=== PATIENT | female | born 1980 | race Caucasian/White ===

== ENCOUNTER → 2017-06-24 | Outpatient (CLI) | payer OTHER ==
[~2017-06-24] MED LIST: VENL150ER PO
[2017-06-27 13:19] LABS: HPV Genotype 16 Not Detected (NOTDET); HPV Genotype 18 Not Detected (NOTDET)
[2017-07-05 10:04] LABS: HPV High Risk Other Not Detected (NOTDET)
== END ==
LOC: LAB SRC 10:59
PROVIDERS: Nurse Practitioner Family
DX: Z01.419 Encounter for gynecological examination (general) (routine) without abnormal findings (principal)
CPT/HCPCS: 87624; G0123

== ENCOUNTER 2021-01-24 19:10 | Day surgery (SDC) | payer OTHER ==
[~2021-01-24] VITALS: Ht 165.1 cm; Wt 72.6 kg
[2021-01-24 19:49] LABS: BASOPHILS ABSOLUTE AUTO 0.09 K/mm3 (0.00-0.23); BASOPHILS PERCENT AUTO 1 % (0-2); EOSINOPHILS ABSOLUTE AUTO 0.28 K/mm3 (0.00-0.68); EOSINOPHILS PERCENT AUTO 3 % (0-6); Hematocrit 43.8 % (33.0-51.0); IMMATURE GRAN ABSOLUTE AUTO 0.07 K/mm3 (0.00-0.10); IMMATURE GRAN PERCENT AUTO 1 % (0-1); LYMPHOCYTES ABSOLUTE AUTO 2.22 K/mm3 (0.84-5.20); LYMPHOCYTES PERCENT AUTO 21 % (21-46); MONOCYTES PERCENT AUTO 5 % (4-13); Mean Corpuscular HGB 31.7 pg (26.0-34.0); Mean Corpuscular HGB Conc 34.2 g/dL (31.5-36.5); Mean Corpuscular Volume 93 fL (80-100); Mean Platelet Volume 9.1 fL (9.1-12.4); NEUTROPHILS ABSOLUTE AUTO 7.62 K/mm3 (1.96-9.15); NEUTROPHILS PERCENT AUTO 71 % (41-73); Platelet Count 293 K/mm3 (150-400); RDW Coefficient Variation 11.9 % (11.7-14.2); RDW Standard Deviation 40.5 fL (35.1-46.3); Red Blood Cell Count 4.73 M/mm3 (3.80-5.20); White Blood Cell Count 10.78 K/mm3 (4.00-11.30)
[2021-01-24 20:03] LABS: Alanine Aminotransfer (ALT/SGP 30 U/L (12-78); Albumin, Blood 4.3 g/dL (3.4-5.0); Albumin/Globulin Ratio 1.3 (0.8-1.8); Alk Phos 49 U/L (50-136); Anion Gap 5 mmol/L (6-16); Aspartate Aminotrans (AST/SGOT 17 U/L (12-37); Bilirubin, Total 0.6 mg/dL (0.1-1.0); Blood Urea Nitrogen 14 mg/dL (8-24); Bun/Creatinine Ratio 18.5 (12.0-20.0); CO2, Blood 26 mmol/L (21-32); Calcium, Blood 9.2 mg/dL (8.5-10.1); Chloride, Blood 108 mmol/L (98-108); Creatinine, Blood 0.76 mg/dL (0.40-1.00); Globulin, Blood 3.2 g/dL (2.2-4.0); Glomerular Filtration Rate >60 (60-); Glucose, Blood 107 mg/dL (70-99); Potassium, Blood 3.9 mmol/L (3.5-5.5); Sodium, Blood 139 mmol/L (136-145); Total Protein, Blood 7.5 g/dL (6.4-8.2)
[2021-01-24 22:01] LABS: Source, Urine Clean Catch
[2021-01-24 22:08] LABS: Appearance, Urine Clear (Clear); Bilirubin, Urine Neg (Neg); Blood, Urine 4+ (Neg); Color, Urine Amber (P-Yellow); Glucose Qualitative, Urine Neg (Neg); Ketones, Urine 2+ (Neg); Leukocyte Esterase, Urine 1+ (Neg); Nitrite, Urine Neg (Neg); Protein, Urine 2+ (Neg); Urobilinogen, Urine NORM (Normal)
[2021-01-24 22:19] LABS: Bacteria Mod /hpf; Mucus Mod (0-Heavy); Squamous Epithelial Cells Not Seen /hpf (Few)
[2021-01-25 03:12] LABS: SARS-Cov-2 (COVID-19) PCR, MMC NEGATIVE (NEGATIVE)
--- NOTE | 2021-01-25 07:22 | NUR ---
SHIFT SUMMARY PT ARRIVED TO THE FLOOR AT 0111, TRANSFERED FROM TO BED INDEPENDENTLY, A/O X4, VSS, REPORTED 9/10 PAIN WHICH WAS RELIEVED c DILAUDID PER ORDER, ADMIT COMPLETED, BETA HCG COMPLETE (NEGATIVE), COVID COMPLETE (NEGATIVE), PT SLEPT T/O THE REST OF THE SHIFT. NO ACUTE EVENTS THIS SHIFT. CALL LIGHT IN REACH, REPORT GIVEN TO DAY RN.
--- NOTE | 2021-01-25 08:05 | NUR ---
SPOKE WITH PHYSICIAN ON PHONE AND PT IS TO GO TO SURGERY AROUND 1000. NOTIFIED PT AND SHE IS AGREEABLE. PT REPORTS THAT PAIN IS AT A TOLERABLE LEVEL AT THIS TIME AND DENIES THE NEED FOR PAIN MEDICATION.
--- NOTE | 2021-01-25 14:59 | NUR ---
RECEIVED PT BACK FROM SURGERY AT ABOUT 1300. C/O MINOR PAIN BUT DENIES THE NEED FOR PAIN MEDICATION. 3 LAP SITES COVERED WITH DERMABOND ON ABD CDI.
[2021-01-25] MEDS ORDERED: Percocet 5-3251 EACH PO (15:41)
--- NOTE | 2021-01-25 17:26 | NUR ---
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 PT TO SURGERY AT AROUND 1000 TODAY AND BACK AT AROUND 1330. PT A/O X4 AND TREATED FOR PAIN X1. 3 LAP SITES ON ABD CDI. PT GOT UP, AMBULATED AND URINATED. EDUCATED ON POST OP CARE AND FOLLOW UP APPOINTMENTS. VSS. DC'D HOME AND DRIVEN HOME BY MOTHER IN LAW.
== END 2021-01-25 17:27 | disposition home or self-care (01) ==
LOC: ER 19:10 → ORSCMMR 01-25 01:12 → ER 01-25 01:24 → SURS 01-25 01:24 → ORSCMMR 01-25 17:27 → SURS 01-25 17:27
PROVIDERS: Obstetrics & Gynecology; Physician Assistant
PROC: 0UT14ZZ Resection of Left Ovary, Percutaneous Endoscopic Approach (ICD-10-PCS; principal; 2021-01-25 10:00)
PROC: 0UT64ZZ Resection of Left Fallopian Tube, Percutaneous Endoscopic Approach (ICD-10-PCS; principal; 2021-01-25 10:00)
DX: N83.512 Torsion of left ovary and ovarian pedicle (principal); N83.202 Unspecified ovarian cyst, left side; N83.8 Other noninflammatory disorders of ovary, fallopian tube and broad ligament; F17.210 Nicotine dependence, cigarettes, uncomplicated; K21.9 Gastro-esophageal reflux disease without esophagitis; Z20.822 Contact with and (suspected) exposure to COVID-19
CPT/HCPCS: 36415; 74176; 76830; 76856; 80053; 81001; 81025; 85025; 86304; 87086; 88305; 96374; 96375; 96376; 99285-25; A9270; J1100; J1170; J1885; J2250; J2270; J2405; J2704; J2710; J3010; U0004

== ENCOUNTER 2022-04-21 10:36 | Day surgery (SDC) | payer OTHER ==
[~2022-04-21] VITALS: Ht 162.6 cm; Wt 87.5 kg
[~2022-04-21 10:36] MED LIST changes: +Percocet 5-3251 EACH PO
[2022-04-21] MEDS ORDERED: MAGNESIUM OXID500 MG PO (10:59)
[2022-04-21] MEDS ORDERED: FISH OIL 1,2001 EAC7 PO (11:00)
[2022-04-21] MEDS ORDERED: Valerian Root100 MG PO (11:00)
[2022-04-21] MEDS ORDERED: CALCIUM 500 MG1 EAC2 PO (11:00)
--- NOTE | 2022-04-21 13:39 | NUR ---
04/21/22 1339 Yuliana Gillespie PT WAS MEDICATED AR 1328 PER ORDERS FOR 01/13 PAIN. SHE STATES IT IS TOLERABLE BUT WOULD LIKE THE PAIN MEDICATION TO EASE IT SOME. VVS. IS AT BEDSIDE. PT IS EATING AND IS GIVEN THE CALL LIGHT TO NOTIFY RN WHEN SHE IS READY TO VOID.
== END 2022-04-21 15:00 | disposition home or self-care (01) ==
LOC: ORSCSDS 10:36
PROVIDERS: Obstetrics & Gynecology
PROC: 0UDB8ZX Extraction of Endometrium, Via Natural or Artificial Opening Endoscopic, Diagnostic (ICD-10-PCS; principal; 2022-04-21 12:00)
PROC: 0U5B8ZZ Destruction of Endometrium, Via Natural or Artificial Opening Endoscopic (ICD-10-PCS; principal; 2022-04-21 12:00)
DX: N92.0 Excessive and frequent menstruation with regular cycle (principal); N94.6 Dysmenorrhea, unspecified; F17.210 Nicotine dependence, cigarettes, uncomplicated; K21.9 Gastro-esophageal reflux disease without esophagitis
CPT/HCPCS: 88305; A9270; J1100; J1885; J2250; J2405; J2704; J3010; J7120

== ENCOUNTER → 2023-02-11 | Outpatient (CLI) | payer OTHER ==
[~2023-02-11] MED LIST changes: +CALCIUM 500 MG1 EAC2 PO; +FISH OIL 1,2001 EAC7 PO; +MAGNESIUM OXID500 MG PO; +Valerian Root100 MG PO
[2023-02-11 10:58] LABS: BASOPHILS ABSOLUTE AUTO 0.09 K/mm3 (0.00-0.23); BASOPHILS PERCENT AUTO 1 % (0-2); EOSINOPHILS ABSOLUTE AUTO 0.22 K/mm3 (0.00-0.68); EOSINOPHILS PERCENT AUTO 3 % (0-6); Hematocrit 43.6 % (33.0-51.0); Hemoglobin 15.1 g/dL (11.5-16.0); IMMATURE GRAN ABSOLUTE AUTO 0.04 K/mm3 (0.00-0.10); IMMATURE GRAN PERCENT AUTO 1 % (0-1); LYMPHOCYTES ABSOLUTE AUTO 2.34 K/mm3 (0.84-5.20); LYMPHOCYTES PERCENT AUTO 35 % (21-46); MONOCYTES ABSOLUTE AUTO 0.43 K/mm3 (0.16-1.47); MONOCYTES PERCENT AUTO 6 % (4-13); Mean Corpuscular HGB 31.6 pg (26.0-34.0); Mean Corpuscular HGB Conc 34.6 g/dL (31.5-36.5); Mean Corpuscular Volume 91 fL (80-100); Mean Platelet Volume 9.2 fL (9.1-12.4); NEUTROPHILS ABSOLUTE AUTO 3.55 K/mm3 (1.96-9.15); NEUTROPHILS PERCENT AUTO 53 % (41-73); Platelet Count 276 K/mm3 (150-400); RDW Coefficient Variation 11.9 % (11.7-14.2); Red Blood Cell Count 4.78 M/mm3 (3.80-5.20); White Blood Cell Count 6.67 K/mm3 (4.00-11.30)
[2023-02-11 11:07] LABS: Albumin, Blood 3.9 g/dL (3.4-5.0); Albumin/Globulin Ratio 1.1 (0.8-1.8); Bilirubin, Total 0.6 mg/dL (0.1-1.0); Calcium, Blood 9.1 mg/dL (8.5-10.1); Creatinine, Blood 0.8 mg/dL (0.40-1.00); Globulin, Blood 3.5 g/dL (2.2-4.0); Potassium, Blood 3.6 mmol/L (3.5-5.5); Total Protein, Blood 7.4 g/dL (6.4-8.2)
== END ==
LOC: LAB 10:53 → LAB SHORT 10:53
PROVIDERS: Emergency Medicine
DX: R10.31 Right lower quadrant pain (principal)
CPT/HCPCS: 80053; 85025